=== PATIENT | male | born 1950 | race Hispanic/Latino ===

== ENCOUNTER → 2017-10-14 | Outpatient (CLI) | payer MEDICARE, BC ==
[~2017-10-14] MED LIST: JANUMET XR 50-1 EACH; LISINOPRIL10 MG PO; PANTOPRAZOLE SO40 MG PO; RAPAFLO8 MG PO; TRICOR145 MG PO
[2017-10-14 08:58] LABS: BASOPHILS % 0.9 % (0.0-1.0); EOSINOPHILS # (AUTO) 0.2 (0.0-0.4); EOSINOPHILS % 4.7 % (0.0-6.0); LYMPHOCYTES # (AUTO) 1.2 (1.0-3.2); LYMPHOCYTES % 27.4 % (18.0-39.1); MEAN CORPUSCULAR HGB CONC 34.1 g/dL (31-35); MONOCYTES # (AUTO) 0.3 (0.2-0.8); MONOCYTES % 6.1 % (4.4-11.3); NEUTROPHILS # (AUTO) 2.6 (2.1-6.9); NEUTROPHILS % 60.4 % (38.7-80.0); PLATELET COUNT 188 x10e3/uL (140-360); RED BLOOD COUNT 4.66 x10e6/uL (4.3-5.7); RED CELL DISTRIBUTION WIDTH 13.7 % (11.7-14.4)
[2017-10-14 09:17] LABS: ALANINE AMINOTRANSFERASE 69 IU/L (0-55); ALBUMIN 4.3 g/dL (3.5-5.0); ALBUMIN/GLOBULIN RATIO 1.4 (0.8-2.0); ALKALINE PHOSPHATASE 54 IU/L (40-150); ANION GAP 12.6 mmol/L (8-16); BLOOD UREA NITROGEN 20 mg/dL (7-26); BUN/CREATININE RATIO 18 (6-25); CALCIUM 9.9 mg/dL (8.4-10.2); CARBON DIOXIDE 27 mmol/L (22-29); CHLORIDE 107 mmol/L (98-107); CREATININE, SERUM 1.12 mg/dL (0.72-1.25); EST GLOMERULAR FILTRATION RATE > 60 ML/MIN (60-); GLUCOSE 159 mg/dL (74-118); POTASSIUM 4.6 mmol/L (3.5-5.1); SODIUM 142 mmol/L (136-145)
--- NOTE | 2017-10-14 10:52 | Diagnostic Imaging Report ---
PROCEDURE: X-RAY CHEST, TWO VIEWS COMPARISON: None. INDICATIONS: PREOPERATIVE CHEST XRAY FOR HERNIA REPAIR SURGERY FINDINGS: LUNGS: No consolidations or edema. PLEURA: No effusions or pneumothorax. HEART \T\ MEDIASTINUM: The heart is within normal size-limits. BONES \T\ SOFT TISSUES: No acute findings. [place] screw overlies the right humeral head. Degenerative changes of the spine. CONCLUSION: No acute thoracic abnormality. Maxime Doe D.O. Dictated by: Maxime Doe D.O. on 10/14/2017 at 9:44 Electronically approved by: Maxime Doe D.O. on 10/14/2017 at 9:44
== END ==
LOC: RAD 05:00 → OR 10-15 08:59 → EDSTATUS 10-15 11:00
PROVIDERS: ATTEND Surgery
DX: Z01.818 Encounter for other preprocedural examination (principal); K40.90 Unilateral inguinal hernia, without obstruction or gangrene, not specified as recurrent; Z53.8 Procedure and treatment not carried out for other reasons
CPT/HCPCS: 36415; 71046; 80053; 85025; 93005

== ENCOUNTER → 2018-09-22 | Outpatient (CLI) | payer MEDICARE, BC ==
--- NOTE | 2018-09-22 08:41 | Diagnostic Imaging Report ---
EXAM: CHEST 2 VIEWS, PA and lateral DATE: 09/22/2018 Time stamp on exam: 7:54 AM INDICATION: Preoperative COMPARISON: None FINDINGS: LINES/TUBES: None LUNGS: No consolidations or edema. There is a retrocardiac nodular opacity seen on the frontal view. CT scan with contrast is recommended for further evaluation. PLEURA: No effusions or pneumothorax. HEART AND MEDIASTINUM: Normal size and contour. BONES AND SOFT TISSUES: No acute findings. Mild wedging of one of the midthoracic spine vertebral bodies. IMPRESSION: 1. No acute thoracic abnormality. 2. Left lower lobe retrocardiac nodular opacity. Signed by: Dr. Maxime Doe DO on 09/22/2018 8:38 AM
[2018-09-22 08:42] LABS: EOSINOPHILS # (AUTO) 0.2 (0.0-0.4); EOSINOPHILS % 3.8 % (0.0-6.0); HEMATOCRIT 42.8 % (38.2-49.6); HEMOGLOBIN 14.4 g/dL (14.0-18.0); LYMPHOCYTES % 26.2 % (18.0-39.1); MEAN CORPUSCULAR HEMOGLOBIN 29.3 pg (28-32); MEAN CORPUSCULAR HGB CONC 33.6 g/dL (31-35); MEAN CORPUSCULAR VOLUME 87.2 fL (81-99); MONOCYTES # (AUTO) 0.3 (0.2-0.8); MONOCYTES % 6.7 % (4.4-11.3); NEUTROPHILS # (AUTO) 2.4 (2.1-6.9); PLATELET COUNT 207 x10e3/uL (140-360); RED BLOOD COUNT 4.91 x10e6/uL (4.3-5.7); RED CELL DISTRIBUTION WIDTH 13.4 % (11.7-14.4)
[2018-09-22 09:09] LABS: ALANINE AMINOTRANSFERASE 73 IU/L (0-55); ALBUMIN 4.5 g/dL (3.5-5.0); ALBUMIN/GLOBULIN RATIO 1.7 (0.8-2.0); ALKALINE PHOSPHATASE 51 IU/L (40-150); ANION GAP 11.9 mmol/L (8-16); BLOOD UREA NITROGEN 24 mg/dL (7-26); BUN/CREATININE RATIO 23 (6-25); CALCIUM 9.8 mg/dL (8.4-10.2); CARBON DIOXIDE 26 mmol/L (22-29); CHLORIDE 105 mmol/L (98-107); CREATININE, SERUM 1.06 mg/dL (0.72-1.25); EST GLOMERULAR FILTRATION RATE > 60 ML/MIN (60-); GLUCOSE 140 mg/dL (74-118); POTASSIUM 3.9 mmol/L (3.5-5.1); SODIUM 139 mmol/L (136-145)
--- NOTE | 2018-09-22 09:52 | Diagnostic Imaging Report ---
EXAM: US GALLBLADDER DATE: 09/22/2018 7:54 AM INDICATION: ^[id number] ^[id number] ^GALLSTONES COMPARISON: None FINDINGS: Grayscale and color flow Doppler ultrasound of the right upper abdomen was performed. Liver: 15.8 cm span, upper limits of normal. Parenchyma is echogenic compatible with steatosis. No intrahepatic mass or bile duct dilatation. Main portal vein 1.1 cm, nondilated, normal hepatopetal flow. Biliary: There are multiple mobile shadowing gallstones. No gallbladder wall thickening or pericholecystic fluid. Sonographic Cummings sign negative. Common bile duct 0.3 cm, normal. Pancreas: Visualized portions of the pancreas show no mass or duct dilatation. Right kidney: 11.5 cm in length. No hydronephrosis or contour deforming mass. Vessels: Aorta and IVC are partially obscured by overlying bowel. Visualized portions unremarkable. Ascites: No free fluid is seen in the right upper abdomen. IMPRESSION: 1. Cholelithiasis with no sonographic evidence for cholecystitis. 2. No dilatation of the biliary tree. 3. Hepatic steatosis. Signed by: Dr. Ghulam Johnson M.D. on 09/22/2018 9:49 AM
== END ==
LOC: US 07:31
PROVIDERS: ATTEND Surgery
DX: K80.80 Other cholelithiasis without obstruction (principal)
CPT/HCPCS: 36415; 71046; 76705; 80053; 85025; 93005

== ENCOUNTER → 2018-10-06 | Outpatient (CLI) | payer MEDICARE, BC ==
[~2018-10-06] MED LIST changes: +IOPAMIDOL 370 MG/ML 200 ML INFUS..BTL INJ ONE; +SODIUM CHLORIDE 0.9% 50ML 50 ML ONE
--- NOTE | 2018-10-06 11:10 | Diagnostic Imaging Report ---
PROCEDURE: CT scan of the chest WITH intravenous contrast, using standard protocol. TECHNIQUE: The chest was scanned utilizing a multidetector helical scanner from the lung apex through the level of the adrenal glands after the IV administration of 100 cc of Isovue 370. Coronal and sagittal multiplanar reformations were obtained. COMPARISON: Chest radiograph performed 09/22/2018. INDICATIONS: RETROCARDIC NODULE FINDINGS: Lines/tubes: None. Lungs and Airways: 2 mm nodule laterally within the right middle lobe (series 3 image 72). The lungs and airways are otherwise normal with no focal abnormality demonstrated. No retrocardiac/left lower lobe nodule is identified to correspond to the abnormality identified on comparison chest radiograph. Pleura: The pleural spaces are clear. Heart and mediastinum: Visualized portions of the thyroid gland are normal. No axillary, hilar, or mediastinal lymphadenopathy. Calcified subcarinal lymph node. Mild atherosclerotic calcification of the aortic arch. No ectasia or aneurysmal dilatation of the ascending thoracic aorta. Pulmonary outflow tract is of normal caliber. Heart size is normal without pericardial effusion. Soft tissues: Normal. Abdomen: Subcentimeter hyperattenuating lesion in hepatic segment 7 is too small to further characterize the likely are present a small vascular shunt or flash filling hemangioma. Hepatic parenchyma is diffusely hypoattenuating compatible with steatosis. Visualized spleen, pancreas, gallbladder, and adrenals are unremarkable. Bones: No osseous destructive lesions. Degenerative disc changes of the lower cervical and thoracic spine. Probable bone island in the T7 vertebral body. IMPRESSION: No retrocardiac/left lower lobe nodule or mass lesion is identified to correspond to the abnormality identified on comparison chest radiograph, which likely represented summation of vascular and osseous structures. 2 mm right middle lobe nodule is likely a sequela of prior granulomatous disease in the setting of associated calcified subcarinal lymph node. If the patient is at high risk of malignancy, a followup CT scan of the chest without contrast may be obtained in 12 months to assess for stability per Fleischner Society 2017 guidelines. Hepatic steatosis. Dictated by: Joel Valencia M.D. on 10/06/2018 at 11:14 Electronically approved by: Joel Valencia M.D. on 10/06/2018 at 11:14
== END ==
LOC: CT 09:34
PROVIDERS: ATTEND Surgery
DX: R91.8 Other nonspecific abnormal finding of lung field (principal); K76.0 Fatty (change of) liver, not elsewhere classified
CPT/HCPCS: 71260; Q9967

== ENCOUNTER → 2020-02-07 | Day surgery (SDC) | payer MEDICARE, BC ==
[2020-02-02 13:53] LABS: BASOPHILS # (AUTO) 0.1 (0.0-0.1); BASOPHILS % 1.4 % (0.0-1.0); EOSINOPHILS # (AUTO) 0.2 (0.0-0.4); EOSINOPHILS % 3.5 % (0.0-6.0); HEMATOCRIT 39.1 % (38.2-49.6); LYMPHOCYTES # (AUTO) 1.3 (1.0-3.2); LYMPHOCYTES % 23.5 % (18.0-39.1); MEAN CORPUSCULAR HEMOGLOBIN 29.2 pg (28-32); MEAN CORPUSCULAR HGB CONC 33.2 g/dL (31-35); MEAN CORPUSCULAR VOLUME 87.9 fL (81-99); MONOCYTES # (AUTO) 0.4 (0.2-0.8); MONOCYTES % 7.4 % (4.4-11.3); NEUTROPHILS # (AUTO) 3.6 (2.1-6.9); NEUTROPHILS % 63.7 % (38.7-80.0); PLATELET COUNT 255 x10e3/uL (140-360); RED BLOOD COUNT 4.45 x10e6/uL (4.3-5.7); RED CELL DISTRIBUTION WIDTH 13.2 % (11.7-14.4)
[~2020-02-07] VITALS: Ht 172.7 cm; Wt 93.0 kg
[~2020-02-07] MED LIST changes: +AMLODIPINE BESYL5 MG PO; +ASPIRIN81 MG PO; +ATORVASTATIN CA10 MG PO; +COQ-10100 MG PO; +FENTANYL CITRATE/PF 100MCG/2 ML INJ ONE; +GLUCAGON FOR INJ 1 MG VIAL ONE; +HYDROXYZINE HCL50 MG PO; +HYOSCYAMINE 0.125 MG TAB ONE; -IOPAMIDOL 370 MG/ML 200 ML INFUS..BTL INJ ONE; +JANUVIA100 MG PO; +LIDOCAINE HCL 2% LOCAL INJ 5 ML SDV VIAL INJ ONE; +LOSARTAN POTAS100 MG PO; +METFORMIN HCL500 MG PO; +MIDAZOLAM HCL 2 MG/2 ML VIAL ONE; +PROPOFOL IV EMULSION 10 MG/ML 20 ML VIAL ONE; +ROPINIROLE HCL1 MG PO; -SODIUM CHLORIDE 0.9% 50ML 50 ML ONE
[2020-02-07 13:30] VITALS: BP 125/78
--- NOTE | 2020-02-07 14:52 | Operative Report ---
DATE OF PROCEDURE: 02/07/2020 SURGEON: Darrin Jarrett MD PROCEDURES: EGD with biopsies and colonoscopy with polypectomy. INDICATIONS FOR EGD: Heartburn. INDICATIONS FOR COLONOSCOPY: Colorectal cancer screening. MEDICATIONS: The patient was done under MAC, please see anesthesiologist's note. PROCEDURE IN DETAIL: With the patient in the left lateral decubitus position, a flexible fiberoptic Olympus gastroscope was introduced into the esophagus under direct visualization without any difficulty. There was some patchy erythema noted in distal esophagus. The scope was then advanced with ease into the stomach. Mucosa overlying the antrum and the body revealed some patchy erythema and [id number] edema, and biopsies were obtained and sent to stain for H. pylori. Minute hyperplastic-appearing polyps were noted in the body of the stomach and some were partially excised with the cold biopsy forceps. The pylorus was of normal contour and shape, was intubated with ease and the scope was advanced all the way to the second portion of the duodenum. The scope was then withdrawn slowly. An approximately 1.5 cm sessile lesion was noted in the proximal second portion, proximal to the ampulla, suspicious for just tumor. Biopsies were obtained. The scope was then withdrawn back into the stomach and retroflexed, and mucosa overlying the fundus and the cardia appeared within normal limits. The scope was then straightened out, it was subsequently withdrawn, and the patient tolerated the procedure well. IMPRESSION: 1. Distal esophagitis, mild. 2. Gastritis, biopsied, biopsies sent to stain for Helicobacter pylori. 3. Gastric polyps, minute, body, some partially excised with the cold biopsy forceps. 4. Approximately 1.5 cm sessile lesion, proximal second portion of duodenum. Biopsies obtained. PLAN: Follow up histology. Initiate Protonix 40 mg one p.o. q.a.m. before meals. The biopsies of the duodenal lesion were unrevealing, then a repeat evaluation with the side-viewing scope would be carried out to obtain additional tissue. The patient was then turned around and after adequate lubrication of the anal canal, a flexible fiberoptic Olympus colonoscope was inserted into the rectum with ease and advanced all the way to the cecum. A minute polyp in the cecum was cold biopsied. The scope was then withdrawn slowly. An approximately 8 mm sessile polyp was noted in the distal ascending colon that was removed per hot snare polypectomy and site was hemoclipped x1. The transverse and descending appeared to be within normal limits. Some diverticular disease was noted in the sigmoid colon. The rectum appeared to be within normal limits. The scope was then retroflexed into the distal rectum and small internal hemorrhoids were noted, none of which was actively bleeding. The scope was then straightened out, it was subsequently withdrawn, and the patient tolerated the procedure well. IMPRESSION: 1. Cecal polyp, cold biopsied. 2. Ascending colon polyp, approximately 8 mm in size, hot snared and site was hemoclipped x1. 3. Diverticulosis. 4. Internal hemorrhoids, none actively bleeding. PLAN: Follow up histology. Initiate high-fiber, low-fat diet. Initiate high-fiber supplement. The patient might benefit from a followup colonoscopy in 3 to 5 years. Darrin Jarrett MD [facility] [place]/[facility] /[id number] cc: Shmuel Peace MD
== END | disposition home or self-care (01) ==
LOC: OR 09:23
PROVIDERS: ATTEND Internal Medicine Gastroenterology
DX: K29.70 Gastritis, unspecified, without bleeding (principal); D12.0 Benign neoplasm of cecum; D12.2 Benign neoplasm of ascending colon; K31.7 Polyp of stomach and duodenum; K29.80 Duodenitis without bleeding; K20.90 Esophagitis, unspecified without bleeding; K57.30 Diverticulosis of large intestine without perforation or abscess without bleeding; K64.8 Other hemorrhoids; G47.33 Obstructive sleep apnea (adult) (pediatric); E11.9 Type 2 diabetes mellitus without complications; I10 Essential (primary) hypertension; N20.0 Calculus of kidney; N40.0 Benign prostatic hyperplasia without lower urinary tract symptoms; E78.5 Hyperlipidemia, unspecified; F41.9 Anxiety disorder, unspecified; Z01.810 Encounter for preprocedural cardiovascular examination; Z01.812 Encounter for preprocedural laboratory examination; Z20.828 Contact with and (suspected) exposure to other viral communicable diseases; Z79.84 Long term (current) use of oral hypoglycemic drugs; Z79.82 Long term (current) use of aspirin; Z68.29 Body mass index [BMI] 29.0-29.9, adult
CPT/HCPCS: 36415 ×2; 43239; 45380; 45385; 82948; 85025; 88305; 88312; 93005; J1610; J2001; J2250; J2704; J3010; U0002; 45384

== ENCOUNTER → 2020-06-07 | Outpatient (CLI) | payer MEDICARE, BC ==
[~2020-06-07] MED LIST changes: -FENTANYL CITRATE/PF 100MCG/2 ML INJ ONE; -GLUCAGON FOR INJ 1 MG VIAL ONE; -HYOSCYAMINE 0.125 MG TAB ONE; -LIDOCAINE HCL 2% LOCAL INJ 5 ML SDV VIAL INJ ONE; -MIDAZOLAM HCL 2 MG/2 ML VIAL ONE; -PROPOFOL IV EMULSION 10 MG/ML 20 ML VIAL ONE
== END ==
LOC: RAD 13:13
PROVIDERS: ATTEND Urology
DX: I82.401 Acute embolism and thrombosis of unspecified deep veins of right lower extremity (principal)
CPT/HCPCS: 93971

== ENCOUNTER 2020-06-08 23:21 | Emergency (ER) | payer MEDICARE, BC ==
[~2020-06-08] VITALS: Ht 172.7 cm; Wt 93.0 kg
== END 2020-06-09 00:04 | disposition home or self-care (01) ==
LOC: ER 23:36
DX: M79.89 Other specified soft tissue disorders (principal); I10 Essential (primary) hypertension; E11.9 Type 2 diabetes mellitus without complications; E78.5 Hyperlipidemia, unspecified; Z87.442 Personal history of urinary calculi
CPT/HCPCS: 99282

== ENCOUNTER 2020-06-13 11:00 | Inpatient (IN) | payer MEDICARE, BC ==
[~2020-06-13] VITALS: Ht 172.7 cm; Wt 93.0 kg
[2020-06-13 11:27] LABS: BASOPHILS # (AUTO) 0.1 (0.0-0.1); BASOPHILS % 1.2 % (0.0-1.0); EOSINOPHILS # (AUTO) 0.2 (0.0-0.4); EOSINOPHILS % 3.9 % (0.0-6.0); HEMATOCRIT 35.3 % (38.2-49.6); HEMOGLOBIN 10.8 g/dL (14.0-18.0); LYMPHOCYTES # (AUTO) 0.9 (1.0-3.2); LYMPHOCYTES % 16.9 % (18.0-39.1); MEAN CORPUSCULAR HGB CONC 30.6 g/dL (31-35); MEAN CORPUSCULAR VOLUME 88.3 fL (81-99); MONOCYTES # (AUTO) 0.2 (0.2-0.8); MONOCYTES % 4.3 % (4.4-11.3); NEUTROPHILS # (AUTO) 3.8 (2.1-6.9); NEUTROPHILS % 73.3 % (38.7-80.0); PLATELET COUNT 358 x10e3/uL (140-360); RED CELL DISTRIBUTION WIDTH 13.6 % (11.7-14.4)
[2020-06-13 11:44] LABS: ALANINE AMINOTRANSFERASE 22 IU/L (0-55); ALBUMIN 3.8 g/dL (3.5-5.0); ALBUMIN/GLOBULIN RATIO 0.9 (0.8-2.0); ALKALINE PHOSPHATASE 58 IU/L (40-150); ANION GAP 14.1 mmol/L (8-16); BLOOD UREA NITROGEN 14 mg/dL (7-26); BUN/CREATININE RATIO 13 (6-25); CALCIUM 9.1 mg/dL (8.4-10.2); CARBON DIOXIDE 23 mmol/L (22-29); CHLORIDE 108 mmol/L (98-107); CREATINE KINASE 45 IU/L (30-200); CREATININE, SERUM 1.06 mg/dL (0.72-1.25); EST GLOMERULAR FILTRATION RATE > 60 ML/MIN (60-); GLUCOSE 166 mg/dL (74-118); POTASSIUM 4.1 mmol/L (3.5-5.1); SODIUM 141 mmol/L (136-145)
[2020-06-13 12:33] LABS: CLARITY,URINE CLOUDY (CLEAR); COLOR,URINE YELLOW (YELLOW)
[2020-06-13 12:34] LABS: KETONES,URINE NEGATIVE (NEGATIVE); LEUKOCYTE ESTERASE ,URINE SMALL (NEGATIVE); NITRITE,URINE NEGATIVE (NEGATIVE); PROTEIN,URINE DIPSTICK >=300 (NEGATIVE); URINE UROBILINOGEN 0.2 mg/dL (0.2 - 1)
[2020-06-13 12:45] LABS: BACTERIA,URINE RARE /HPF; EPITHELIAL CELLS,URINE FEW /LPF; RBC,URINE 21-50 /HPF (0-5); WBC,URINE (MAN) >50 /HPF (0-5)
[2020-06-13] MEDS ORDERED: SODIUM CHLORIDE 0.9% 1000ML 1,000 ML IV SCH (12:45)
[2020-06-13] MEDS ORDERED: CEFTRIAXONE SOD 1 GM/50 ML BAG IV SCH (12:45)
[2020-06-13] MEDS: CEFTRIAXONE SOD 1 GM in SODIUM CHLORIDE 0.9% 50ML 50 ML IV SCH (13:13)
[2020-06-13 13:26] VITALS: BP 127/78
[2020-06-13] MEDS ORDERED: OXYBUTYNIN CHLOR5 MG PO (13:36)
[2020-06-13] MEDS ORDERED: CEFTRIAXONE SOD 1 GM in SODIUM CHLORIDE 0.9% 50ML 50 ML IV SCH (14:00)
[2020-06-13 16:21] VITALS: BP 132/68
[2020-06-13 16:27] VITALS: BP 132/68
[2020-06-13] MEDS ORDERED: HYDROXYZINE HCL 25 MG TAB PO PRN (17:30)
[2020-06-13] MEDS ORDERED: DEXTROSE 50% SYRINGE 50 ML IV PRN (17:30)
[2020-06-13] MEDS ORDERED: HYDROXYZINE HCL 50 MG PO PRN (17:30)
[2020-06-13 20:00] VITALS: BP 122/75
[2020-06-13] MEDS: ATORVASTATIN 10 MG TAB PO SCH (20:51)
[2020-06-13] MEDS: INSULIN REGULAR, HUMAN 100 UNIT/1 ML 3ML VIAL SQ SCH (20:58)
[2020-06-13 21:33] VITALS: BP 122/75
[2020-06-14] VITALS (9 sets, daily range): BP systolic 110–147; BP diastolic 61–81
[2020-06-14 05:46] LABS: BASOPHILS # (AUTO) 0.1 (0.0-0.1); BASOPHILS % 1.1 % (0.0-1.0); EOSINOPHILS # (AUTO) 0.2 (0.0-0.4); EOSINOPHILS % 3.8 % (0.0-6.0); HEMATOCRIT 30.4 % (38.2-49.6); HEMOGLOBIN 9.5 g/dL (14.0-18.0); LYMPHOCYTES # (AUTO) 1.2 (1.0-3.2); LYMPHOCYTES % 21.3 % (18.0-39.1); MEAN CORPUSCULAR HEMOGLOBIN 27.4 pg (28-32); MEAN CORPUSCULAR HGB CONC 31.3 g/dL (31-35); MEAN CORPUSCULAR VOLUME 87.6 fL (81-99); MONOCYTES # (AUTO) 0.4 (0.2-0.8); MONOCYTES % 6.3 % (4.4-11.3); NEUTROPHILS # (AUTO) 3.7 (2.1-6.9); NEUTROPHILS % 67.1 % (38.7-80.0); PLATELET COUNT 313 x10e3/uL (140-360); RED BLOOD COUNT 3.47 x10e6/uL (4.3-5.7); RED CELL DISTRIBUTION WIDTH 13.5 % (11.7-14.4)
[2020-06-14 06:21] LABS: ALANINE AMINOTRANSFERASE 14 IU/L (0-55); ALBUMIN 3.2 g/dL (3.5-5.0); ALBUMIN/GLOBULIN RATIO 0.9 (0.8-2.0); ALKALINE PHOSPHATASE 53 IU/L (40-150); ANION GAP 12.8 mmol/L (8-16); BLOOD UREA NITROGEN 11 mg/dL (7-26); BUN/CREATININE RATIO 10 (6-25); CALCIUM 8.7 mg/dL (8.4-10.2); CARBON DIOXIDE 22 mmol/L (22-29); CHLORIDE 112 mmol/L (98-107); CREATININE, SERUM 1.07 mg/dL (0.72-1.25); EST GLOMERULAR FILTRATION RATE > 60 ML/MIN (60-); GLUCOSE 117 mg/dL (74-118); POTASSIUM 3.8 mmol/L (3.5-5.1); SODIUM 143 mmol/L (136-145)
[2020-06-14] MEDS: INSULIN REGULAR, HUMAN 100 UNIT/1 ML 3ML VIAL SQ SCH ×4 (07:30→20:57)
[2020-06-14] MEDS: LOSARTAN POTASSIUM 100 MG TAB PO SCH (08:54)
[2020-06-14] MEDS: SITAGLIPTIN 100 MG TAB PO SCH (08:54)
[2020-06-14] MEDS: AMLODIPINE BESYLATE 5 MG TAB PO SCH (08:55)
[2020-06-14] MEDS: SILODOSIN 8 MG PO SCH (08:57)
[2020-06-14] MEDS ORDERED: CEFTRIAXONE SOD 1 GM VIAL ONE (12:17)
[2020-06-14] MEDS ORDERED: SODIUM CHLORIDE 0.9% 50ML 50 ML ONE (12:22)
[2020-06-14] MEDS ORDERED: SODIUM CHLORIDE 0.9% 250ML 250 ML ONE (13:17)
[2020-06-14] MEDS: CEFTRIAXONE SOD 1 GM in SODIUM CHLORIDE 0.9% 50ML 50 ML IV SCH (13:31)
[2020-06-14] MEDS: ALBUTEROL SULF 0.083% NEB SOLN 3 ML NEB NEB SCH ×2 (16:12→23:00)
[2020-06-14] MEDS: ATORVASTATIN 10 MG TAB PO SCH (20:56)
[2020-06-15] VITALS (7 sets, daily range): BP systolic 110–122; BP diastolic 66–81
[2020-06-15] MEDS ORDERED: ACETAMINOPHEN 325 MG TAB PO PRN (00:30)
[2020-06-15] MEDS: ALBUTEROL SULF 0.083% NEB SOLN 3 ML NEB NEB SCH ×3 (07:00→21:30)
[2020-06-15] MEDS: INSULIN REGULAR, HUMAN 100 UNIT/1 ML 3ML VIAL SQ SCH ×4 (07:30→20:16)
[2020-06-15] MEDS: AMLODIPINE BESYLATE 5 MG TAB PO SCH (08:32)
[2020-06-15] MEDS: SITAGLIPTIN 100 MG TAB PO SCH (08:32)
[2020-06-15] MEDS: LOSARTAN POTASSIUM 100 MG TAB PO SCH (08:33)
[2020-06-15] MEDS: SILODOSIN 8 MG PO SCH (09:00)
[2020-06-15] MEDS: CEFTRIAXONE SOD 1 GM in SODIUM CHLORIDE 0.9% 50ML 50 ML IV SCH (12:36)
[2020-06-15] MEDS ORDERED: SODIUM CHLORIDE 0.9% 50ML 50 ML ONE (12:43)
[2020-06-15] MEDS ORDERED: CEFTRIAXONE SOD 1 GM VIAL ONE (12:43)
[2020-06-15] MEDS: OXYBUTYNIN CHLORIDE 5 MG TAB PO SCH (18:43)
[2020-06-15] MEDS: ATORVASTATIN 10 MG TAB PO SCH (20:15)
[2020-06-16 00:45] VITALS: BP 119/72
[2020-06-16 04:05] VITALS: BP 125/72
[2020-06-16] MEDS: ALBUTEROL SULF 0.083% NEB SOLN 3 ML NEB NEB SCH (07:00)
[2020-06-16 08:08] VITALS: BP 125/72
[2020-06-16] MEDS: INSULIN REGULAR, HUMAN 100 UNIT/1 ML 3ML VIAL SQ SCH ×2 (08:22→11:30)
[2020-06-16] MEDS: LOSARTAN POTASSIUM 100 MG TAB PO SCH (08:38)
[2020-06-16] MEDS: SILODOSIN 8 MG PO SCH (08:39)
[2020-06-16] MEDS: AMLODIPINE BESYLATE 5 MG TAB PO SCH (08:39)
[2020-06-16] MEDS: OXYBUTYNIN CHLORIDE 5 MG TAB PO SCH (08:39)
[2020-06-16] MEDS: SITAGLIPTIN 100 MG TAB PO SCH (08:41)
[2020-06-16 09:00] VITALS: BP 119/76
[2020-06-16 12:02] VITALS: BP 136/95
[2020-06-16] MEDS ORDERED: ALBUTEROL SULF 0.083% NEB SOLN 3 ML NEB ONE (12:49)
== END 2020-06-16 13:05 | disposition home or self-care (01) | DRG 689 ==
LOC: ER 11:16 → ERHOLD 12:43 → MED/SURG 15:31
PROVIDERS: ADMIT Internal Medicine; ATTEND Internal Medicine
DX: N30.91 Cystitis, unspecified with hematuria (principal); J18.9 Pneumonia, unspecified organism; S27.392A Other injuries of lung, bilateral, initial encounter; E78.5 Hyperlipidemia, unspecified; N40.0 Benign prostatic hyperplasia without lower urinary tract symptoms; Z87.442 Personal history of urinary calculi; E11.65 Type 2 diabetes mellitus with hyperglycemia; K80.20 Calculus of gallbladder without cholecystitis without obstruction; K76.0 Fatty (change of) liver, not elsewhere classified; Z20.822 Contact with and (suspected) exposure to COVID-19; E66.9 Obesity, unspecified; Z68.31 Body mass index [BMI] 31.0-31.9, adult; B95.2 Enterococcus as the cause of diseases classified elsewhere; R60.0 Localized edema; Z79.82 Long term (current) use of aspirin; Z79.84 Long term (current) use of oral hypoglycemic drugs
CPT/HCPCS: 36415; 71045; 74176; 80053; 81001; 82550; 82553; 82948; 83605; 84484; 85025; 87040; 87086; 87186; 96372; 99284; J0696; J3410; J7030; J7050; U0002

== ENCOUNTER 2020-11-19 19:58 | Emergency (ER) | payer MEDICARE, BC ==
[~2020-11-19] VITALS: Ht 172.7 cm; Wt 93.0 kg
[~2020-11-19 19:58] MED LIST changes: +OXYBUTYNIN CHLOR5 MG PO
[2020-11-19] MEDS ORDERED: FAMOTIDINE 20 MG/2 ML VIAL IV STA (20:14)
[2020-11-19] MEDS ORDERED: SODIUM CHLORIDE 0.9% 1000ML 1,000 ML IV STA (20:14)
[2020-11-19 20:29] LABS: BASOPHILS # (AUTO) 0.1 (0.0-0.1); BASOPHILS % 1.3 % (0.0-1.0); EOSINOPHILS # (AUTO) 0.2 (0.0-0.4); EOSINOPHILS % 3.1 % (0.0-6.0); HEMATOCRIT 40.2 % (38.2-49.6); HEMOGLOBIN 13.1 g/dL (14.0-18.0); LYMPHOCYTES # (AUTO) 1.6 (1.0-3.2); LYMPHOCYTES % 28.6 % (18.0-39.1); MEAN CORPUSCULAR HEMOGLOBIN 28.1 pg (28-32); MEAN CORPUSCULAR HGB CONC 32.6 g/dL (31-35); MEAN CORPUSCULAR VOLUME 86.1 fL (81-99); MONOCYTES # (AUTO) 0.4 (0.2-0.8); MONOCYTES % 7.1 % (4.4-11.3); NEUTROPHILS # (AUTO) 3.3 (2.1-6.9); NEUTROPHILS % 59.5 % (38.7-80.0); PLATELET COUNT 216 x10e3/uL (140-360); RED BLOOD COUNT 4.67 x10e6/uL (4.3-5.7)
[2020-11-19 20:48] LABS: ALBUMIN 4.4 g/dL (3.5-5.0); ALBUMIN/GLOBULIN RATIO 1.3 (0.8-2.0); ANION GAP 14.7 mmol/L (8-16); CREATININE, SERUM 1.36 mg/dL (0.72-1.25); POTASSIUM 3.7 mmol/L (3.5-5.1)
[2020-11-19] MEDS ORDERED: SODIUM CHLORIDE 0.9% 50ML 50 ML ONE (21:10)
[2020-11-19] MEDS ORDERED: IOPAMIDOL 370 MG/ML 200 ML INFUS..BTL INJ ONE (21:10)
[2020-11-19] MEDS ORDERED: ACETAMINOPHEN-1 EAC3 PO (22:21)
== END 2020-11-19 22:26 | disposition home or self-care (01) ==
LOC: ER 20:09
DX: R10.11 Right upper quadrant pain (principal); E11.65 Type 2 diabetes mellitus with hyperglycemia; K80.20 Calculus of gallbladder without cholecystitis without obstruction; K57.30 Diverticulosis of large intestine without perforation or abscess without bleeding; I10 Essential (primary) hypertension; K76.0 Fatty (change of) liver, not elsewhere classified; E78.5 Hyperlipidemia, unspecified; N40.0 Benign prostatic hyperplasia without lower urinary tract symptoms
CPT/HCPCS: 36415; 74177; 80053; 82550; 82553; 83690; 84484; 85025; 99284; J7030; Q9967

== ENCOUNTER → 2021-02-18 | Day surgery (SDC) | payer MEDICARE, BC ==
[2021-02-17 11:39] LABS: BASOPHILS # (AUTO) 0.1 (0.0-0.1); BASOPHILS % 1.5 % (0.0-1.0); EOSINOPHILS # (AUTO) 0.2 (0.0-0.4); HEMATOCRIT 42.1 % (38.2-49.6); HEMOGLOBIN 13.9 g/dL (14.0-18.0); LYMPHOCYTES # (AUTO) 1.2 (1.0-3.2); LYMPHOCYTES % 23.7 % (18.0-39.1); MEAN CORPUSCULAR HEMOGLOBIN 29.2 pg (28-32); MEAN CORPUSCULAR VOLUME 88.4 fL (81-99); MONOCYTES # (AUTO) 0.3 (0.2-0.8); MONOCYTES % 6.1 % (4.4-11.3); NEUTROPHILS # (AUTO) 3.4 (2.1-6.9); NEUTROPHILS % 63.9 % (38.7-80.0); PLATELET COUNT 214 x10e3/uL (140-360); RED BLOOD COUNT 4.76 x10e6/uL (4.3-5.7); RED CELL DISTRIBUTION WIDTH 13.6 % (11.7-14.4)
[~2021-02-18] MED LIST changes: +ACETAMINOPHEN-1 EAC3 PO; +BUPIVACAINE HCL 0.5% INJ 30 ML VIAL INJ ONE; +LIDOCAINE 1% W/EPINEPHRINE 20 ML VIAL ONE; +SODIUM CHLORIDE 0.9% 50ML 0 ML ONE; +ULTRACET TABLE1 EACH PO; +Vancomycin IV 1 GM VIAL ONE
[2021-02-18 10:10] VITALS: BP 140/81
== END | disposition home or self-care (01) ==
LOC: OR 07:13
PROVIDERS: ATTEND Surgery
DX: C7A.8 Other malignant neuroendocrine tumors (principal); E11.9 Type 2 diabetes mellitus without complications; E78.00 Pure hypercholesterolemia, unspecified; I10 Essential (primary) hypertension; Z01.810 Encounter for preprocedural cardiovascular examination; Z01.812 Encounter for preprocedural laboratory examination; Z20.822 Contact with and (suspected) exposure to COVID-19; Z79.84 Long term (current) use of oral hypoglycemic drugs; Z79.82 Long term (current) use of aspirin; Z79.899 Other long term (current) drug therapy; Z68.31 Body mass index [BMI] 31.0-31.9, adult; Z87.891 Personal history of nicotine dependence
CPT/HCPCS: 11604; 12032; 36415 ×2; 82948; 85025; 88305; 88342; 93005; U0002; 88304; J0690; J3370

== ENCOUNTER → 2021-03-13 | Day surgery (SDC) | payer MEDICARE, BC ==
[2021-03-11 09:32] LABS: BASOPHILS # (AUTO) 0.1 (0.0-0.1); BASOPHILS % 1.7 % (0.0-1.0); EOSINOPHILS # (AUTO) 0.3 (0.0-0.4); EOSINOPHILS % 5.7 % (0.0-6.0); HEMATOCRIT 40.7 % (38.2-49.6); HEMOGLOBIN 13.3 g/dL (14.0-18.0); LYMPHOCYTES # (AUTO) 1.2 (1.0-3.2); LYMPHOCYTES % 20.1 % (18.0-39.1); MEAN CORPUSCULAR HEMOGLOBIN 28.4 pg (28-32); MEAN CORPUSCULAR HGB CONC 32.7 g/dL (31-35); MEAN CORPUSCULAR VOLUME 86.8 fL (81-99); MONOCYTES # (AUTO) 0.3 (0.2-0.8); NEUTROPHILS # (AUTO) 3.9 (2.1-6.9); NEUTROPHILS % 66.8 % (38.7-80.0); PLATELET COUNT 268 x10e3/uL (140-360); RED BLOOD COUNT 4.69 x10e6/uL (4.3-5.7); RED CELL DISTRIBUTION WIDTH 13.3 % (11.7-14.4)
[2021-03-11 10:02] LABS: ANION GAP 14.9 mmol/L (8-16); CALCIUM 8.9 mg/dL (8.4-10.2); CREATININE, SERUM 1.15 mg/dL (0.72-1.25); POTASSIUM 3.9 mmol/L (3.5-5.1)
[~2021-03-13] MED LIST changes: +ANAPROX DS550 MG PO; +FENTANYL CITRATE/PF 100MCG/2 ML INJ ONE; +HYDROCODON-ACE1 EA11 PO; -LIDOCAINE 1% W/EPINEPHRINE 20 ML VIAL ONE; +MIDAZOLAM HCL 2 MG/2 ML VIAL ONE; -SODIUM CHLORIDE 0.9% 50ML 0 ML ONE; -Vancomycin IV 1 GM VIAL ONE
[2021-03-13 12:30] VITALS: BP 130/86
== END | disposition home or self-care (01) ==
LOC: OR 06:39
PROVIDERS: ATTEND Surgery
DX: C7A.8 Other malignant neuroendocrine tumors (principal); G47.33 Obstructive sleep apnea (adult) (pediatric); I10 Essential (primary) hypertension; E11.9 Type 2 diabetes mellitus without complications; E78.00 Pure hypercholesterolemia, unspecified; Z01.812 Encounter for preprocedural laboratory examination; Z20.822 Contact with and (suspected) exposure to COVID-19; Z79.82 Long term (current) use of aspirin; Z79.84 Long term (current) use of oral hypoglycemic drugs; Z79.899 Other long term (current) drug therapy; Z68.31 Body mass index [BMI] 31.0-31.9, adult
CPT/HCPCS: 27048; 36415 ×2; 80048; 82948; 85025; 88307; J0690; J2250; J3010; U0002; 88304

== ENCOUNTER 2021-03-24 18:25 | Emergency (ER) | payer MEDICARE, BC ==
[~2021-03-24] VITALS: Ht 172.7 cm; Wt 93.0 kg
[~2021-03-24 18:25] MED LIST changes: -ANAPROX DS550 MG PO; -BUPIVACAINE HCL 0.5% INJ 30 ML VIAL INJ ONE; -FENTANYL CITRATE/PF 100MCG/2 ML INJ ONE; -MIDAZOLAM HCL 2 MG/2 ML VIAL ONE
[2021-03-24 18:58] LABS: BASOPHILS # (AUTO) 0.1 (0.0-0.1); BASOPHILS % 0.9 % (0.0-1.0); EOSINOPHILS # (AUTO) 0.4 (0.0-0.4); EOSINOPHILS % 3.9 % (0.0-6.0); HEMATOCRIT 38.4 % (38.2-49.6); HEMOGLOBIN 12.4 g/dL (14.0-18.0); LYMPHOCYTES # (AUTO) 1.5 (1.0-3.2); LYMPHOCYTES % 14.4 % (18.0-39.1); MEAN CORPUSCULAR HEMOGLOBIN 28.1 pg (28-32); MEAN CORPUSCULAR HGB CONC 32.3 g/dL (31-35); MEAN CORPUSCULAR VOLUME 87.1 fL (81-99); MONOCYTES # (AUTO) 0.5 (0.2-0.8); MONOCYTES % 4.4 % (4.4-11.3); NEUTROPHILS % 75.6 % (38.7-80.0); PLATELET COUNT 338 x10e3/uL (140-360); RED BLOOD COUNT 4.41 x10e6/uL (4.3-5.7); RED CELL DISTRIBUTION WIDTH 12.9 % (11.7-14.4)
[2021-03-24 19:05] LABS: INR 0.9; PROTHROMBIN TIME 12.9 seconds (11.9-14.5)
[2021-03-24 19:14] LABS: ALBUMIN 4.1 g/dL (3.5-5.0); ALBUMIN/GLOBULIN RATIO 1.1 (0.8-2.0); CALCIUM 9.8 mg/dL (8.4-10.2); CREATININE, SERUM 1.25 mg/dL (0.72-1.25)
[2021-03-24] MEDS ORDERED: ANAPROX DS550 MG PO (20:34)
[2021-03-24 20:51] VITALS: BP 150/77
== END 2021-03-24 20:45 | disposition home or self-care (01) ==
LOC: ER 18:32
DX: R07.81 Pleurodynia (principal); I10 Essential (primary) hypertension; E11.9 Type 2 diabetes mellitus without complications; C7B.8 Other secondary neuroendocrine tumors; E78.5 Hyperlipidemia, unspecified; Z79.82 Long term (current) use of aspirin; Z79.84 Long term (current) use of oral hypoglycemic drugs; Z20.822 Contact with and (suspected) exposure to COVID-19
CPT/HCPCS: 36415; 71045; 80053; 83880; 85025; 85379; 85610; 93005; 99284; U0002

== ENCOUNTER 2021-03-27 20:44 | Emergency (ER) | payer MEDICARE, BC ==
[~2021-03-27] VITALS: Ht 172.7 cm; Wt 93.0 kg
[~2021-03-27 20:44] MED LIST changes: +ANAPROX DS550 MG PO
[2021-03-27 22:05] LABS: CLARITY,URINE CLEAR (CLEAR); COLOR,URINE YELLOW (YELLOW); KETONES,URINE NEGATIVE (NEGATIVE); LEUKOCYTE ESTERASE ,URINE NEGATIVE (NEGATIVE); NITRITE,URINE NEGATIVE (NEGATIVE); PROTEIN,URINE DIPSTICK NEGATIVE (NEGATIVE); URINE UROBILINOGEN 0.2 mg/dL (0.2 - 1)
[2021-03-27 22:06] LABS: BACTERIA,URINE FEW /HPF; EPITHELIAL CELLS,URINE RARE /LPF; RBC,URINE 0-5 /HPF (0-5); WBC,URINE (MAN) 0-5 /HPF (0-5)
[2021-03-27 23:45] VITALS: BP 168/84
== END 2021-03-27 23:47 | disposition home or self-care (01) ==
LOC: ER 20:56
DX: R50.9 Fever, unspecified (principal); M62.830 Muscle spasm of back; I10 Essential (primary) hypertension; E11.9 Type 2 diabetes mellitus without complications; K21.9 Gastro-esophageal reflux disease without esophagitis; E78.5 Hyperlipidemia, unspecified; Z87.442 Personal history of urinary calculi; Z20.822 Contact with and (suspected) exposure to COVID-19
CPT/HCPCS: 71045; 81001; 99283; U0002

== ENCOUNTER → 2021-10-13 | Day surgery (SDC) | payer MEDICARE, BC ==
[2021-10-09 10:29] LABS: BASOPHILS # (AUTO) 0.1 (0.0-0.1); BASOPHILS % 1.4 % (0.0-1.0); EOSINOPHILS # (AUTO) 0.2 (0.0-0.4); EOSINOPHILS % 3.4 % (0.0-6.0); HEMATOCRIT 40.7 % (38.2-49.6); HEMOGLOBIN 13.7 g/dL (14.0-18.0); LYMPHOCYTES # (AUTO) 1.3 (1.0-3.2); LYMPHOCYTES % 22.8 % (18.0-39.1); MEAN CORPUSCULAR HEMOGLOBIN 28.7 pg (28-32); MEAN CORPUSCULAR HGB CONC 33.7 g/dL (31-35); MEAN CORPUSCULAR VOLUME 85.1 fL (81-99); MONOCYTES # (AUTO) 0.3 (0.2-0.8); NEUTROPHILS # (AUTO) 3.7 (2.1-6.9); PLATELET COUNT 218 x10e3/uL (140-360); RED BLOOD COUNT 4.78 x10e6/uL (4.3-5.7); RED CELL DISTRIBUTION WIDTH 13.5 % (11.7-14.4)
[~2021-10-13] MED LIST changes: +HYDROXYZIN10 MG/5 ML PO; +MIDAZOLAM HCL 2 MG/2 ML VIAL ONE; +ZETIA10 MG PO
[2021-10-13 15:20] VITALS: BP 129/81
== END | disposition home or self-care (01) ==
LOC: OR 10:36
PROVIDERS: ATTEND Internal Medicine Gastroenterology
DX: K31.9 Disease of stomach and duodenum, unspecified (principal); K29.50 Unspecified chronic gastritis without bleeding; K29.60 Other gastritis without bleeding; K21.9 Gastro-esophageal reflux disease without esophagitis; K20.90 Esophagitis, unspecified without bleeding; Z86.010 Personal history of colon polyps; Z71.3 Dietary counseling and surveillance; I10 Essential (primary) hypertension; Z71.89 Other specified counseling; E11.9 Type 2 diabetes mellitus without complications; E78.00 Pure hypercholesterolemia, unspecified; F41.9 Anxiety disorder, unspecified; Z01.812 Encounter for preprocedural laboratory examination; Z20.822 Contact with and (suspected) exposure to COVID-19; Z79.84 Long term (current) use of oral hypoglycemic drugs; Z79.899 Other long term (current) drug therapy; Z68.29 Body mass index [BMI] 29.0-29.9, adult; Z87.891 Personal history of nicotine dependence
CPT/HCPCS: 0223U; 36415 ×2; 43239; 43261; 82948; 85025; 88305; 88342; J2250; 88312